=== PATIENT | male | born 1985 | race Caucasian/White ===

== ENCOUNTER 2017-10-25 10:38 | Emergency (ER) | payer SELFPAY ==
[2017-10-25] VITALS (7 sets, daily range): BP systolic 153–161; BP diastolic 67–87; PULSE 43–50; RESP 16–18; TEMP 97.6; O2SAT 97–100
[~2017-10-25] VITALS: Ht 185.4 cm; Wt 90.0 kg
[2017-10-25] MEDS ORDERED: SUCR1TAB PO (10:57)
[2017-10-25] MEDS ORDERED: NEXI20CA PO (10:57)
[2017-10-25] MEDS ORDERED: MORPHINE SULFATE 4 MG/ML INJ IV PUSH ONE (11:15)
[2017-10-25] MEDS ORDERED: PROCHLORPERAZINE INJ 10 MG/2 ML VIAL IV PUSH ONE (11:15)
[2017-10-25] MEDS ORDERED: DICYCLOMINE HCL 20 MG/2 ML VIAL IM ONE (11:15)
[2017-10-25 11:29] LABS: AUTOMATED NEUTROPHIL # 9.1 TH/MM3 (1.8-7.7); BASOPHIL # 0.2 TH/MM3 (0-0.2); BASOPHIL % 1.7 % (0.0-2.0); EOSINOPHIL # 0.1 TH/MM3 (0-0.4); EOSINOPHIL % 0.7 % (0.0-4.0); HEMATOCRIT 51.6 % (39.0-51.0); HEMOGLOBIN 17.2 GM/DL (13.0-17.0); LYMPH % 11.5 % (9.0-44.0); LYMPHOCYTE # 1.3 TH/MM3 (1.0-4.8); MEAN CELL VOLUME 91.3 FL (80.0-100.0); MEAN CORPUSCULAR HEMOGLOBIN 30.5 PG (27.0-34.0); MEAN CORPUSCULAR HGB CONC 33.4 % (32.0-36.0); MEAN PLATELET VOLUME 8.7 FL (7.0-11.0); MONO % 4.1 % (0.0-8.0); MONOCYTE # 0.5 TH/MM3 (0-0.9); PLATELET COUNT 228 TH/MM3 (150-450); RED BLOOD COUNT 5.66 MIL/MM3 (4.50-5.90); RED CELL DISTRIBUTION WIDTH 13.6 % (11.6-17.2); WHITE BLOOD COUNT 11.2 TH/MM3 (4.0-11.0)
[2017-10-25 11:36] LABS: CHLORIDE 110 MEQ/L (98-107); SODIUM (NA) 143 MEQ/L (136-145)
[2017-10-25] MEDS ORDERED: DIATRIZOATE MEGLUM/DIATRIZOATE SOD 9 ML CUP ONE (11:38)
[2017-10-25 11:39] LABS: CALCIUM 9.5 MG/DL (8.5-10.1)
[2017-10-25 11:40] LABS: ALBUMIN 4.4 GM/DL (3.4-5.0); BICARBONATE 24.5 MEQ/L (21.0-32.0); BLOOD UREA NITROGEN 16 MG/DL (7-18); GLUCOSE,RANDOM 123 MG/DL (74-106)
[2017-10-25 11:43] LABS: ALT (GPT) 29 U/L (12-78); AST (GOT) 20 U/L (15-37); GLOMERULAR FILTRATION RATE 99 ML/MIN (>89)
[2017-10-25 11:44] LABS: TOTAL BILIRUBIN ADULT 0.7 MG/DL (0.2-1.0); TOTAL PROTEIN 7.6 GM/DL (6.4-8.2)
[2017-10-25 11:46] LABS: ALKALINE PHOSPHATASE 73 U/L (45-117)
[2017-10-25] MEDS ORDERED: IOHEXOL 350 MG/ML 10 ML VIAL (for RAD DIAG) IVCONTRAST ONE (12:55)
--- NOTE | 2017-10-25 12:59 | PD ---
HPI Chief Complaint: Abdominal Pain Time Seen by Provider: 11:09 Travel History International Travel<30 days: No Contact w/Intl Traveler<30days: No Traveled to known affect area: No History of Present Illness HPI This is a 32-year-old male with a history of gastritis, presents today with complaints of severe abdominal pain with associated nausea vomiting. Patient denies any diarrhea. Patient was seen yesterday at [facility]. At that time he was diagnosed with gastritis. They did do an ultrasound of his gallbladder to rule out cholecystitis. Reportedly gallbladder showed no evidence of gallstones. The patient states the pain is generalized. Worse in the upper abdominal area. He denies any blood in his stool. He denies any fevers or chills. He does report blood-tinged emesis with the violent vomiting. PFSH Past Medical History Ulcer: Yes Tetanus Vaccination: Unknown Influenza Vaccination: No Past Surgical History Surgical History: No Previous Surgery Social History Alcohol Use: No Tobacco Use: Yes (1/2PPD) Substance Use: Yes (MJ) Allergies-Medications (Allergen,Severity, Reaction): Coded Allergies: amoxicillin (Verified Allergy, Severe, Swelling, 10/25/17) Reported Meds & Prescriptions Reported Meds & Active Scripts Active Bentyl (Dicyclomine HCl) 10 Mg Cap 10 Mg PO TID PRN Reported Nexium (Esomeprazole DR) 20 Mg Capdr 20 Mg PO DAILY Sucralfate 1 Gram Tab 1 Gm PO QID on empty stomach Review of Systems Except as stated in HPI: all other systems reviewed are Neg General / Constitutional: No: Fever, Chills HENT: No: Headaches, Lightheadedness Cardiovascular: No: Chest Pain or Discomfort, Palpitations Respiratory: No: Cough, Shortness of Breath Gastrointestinal: Positive: Nausea, Vomiting, Abdominal Pain, No: Diarrhea Genitourinary: No: Frequency, Dysuria Musculoskeletal: No: Weakness, Pain Neurologic: No: Weakness, Dizziness, Headache Physical Exam Narrative GENERAL: Well-developed and nourished male in no acute respiratory distress. Patient is actively vomiting when I SKIN: Focused skin assessment warm/dry. HEAD: Atraumatic. Normocephalic. EYES: Pupils equal and round. No scleral icterus. No injection or drainage. ENT: No nasal bleeding or discharge. Mucous membranes pink and moist. NECK: Trachea midline. No JVD. CARDIOVASCULAR: Regular rate and rhythm. No murmur appreciated. RESPIRATORY: No accessory muscle use. Clear to auscultation. Breath sounds equal bilaterally. GASTROINTESTINAL: Abdomen soft, non-tender, nondistended. Hepatic and splenic margins not palpable. MUSCULOSKELETAL: No obvious deformities. No clubbing. No cyanosis. No edema. NEUROLOGICAL: Awake and alert. No obvious cranial nerve deficits. Motor grossly within normal limits. Normal speech. PSYCHIATRIC: Appropriate mood and affect; insight and judgment normal. Data Data Last Documented VS Vital Signs Date Time Temp Pulse Resp B/P (MAP) Pulse Ox O2 Delivery O2 Flow Rate FiO2 10/25/17 15:21 50 16 155/67 (96) 97 Room Air 10/25/17 12:38 2.00 10/25/17 11:34 100 10/25/17 10:39 97.6 Orders Orders Complete Blood Count With Diff (10/25/17 11:09) Comprehensive Metabolic Panel (10/25/17 11:09) Lipase (10/25/17 11:09) Urinalysis - C+S If Indicated (10/25/17 11:09) Ct Abd/Pel W Iv Contrast(Rout) (10/25/17 11:09) Iv Access Insert/Monitor (10/25/17 11:09) Ecg Monitoring (10/25/17 11:09) Oximetry (10/25/17 11:09) Prochlorperazine Inj (Compazine Inj) (10/25/17 11:15) Dicyclomine Inj (Bentyl Inj) (10/25/17 11:15) Morphine Inj (Morphine Inj) (10/25/17 11:15) Oral Contrast - Adult (10/25/17 11:19) Diatrizoate Liq ( Gastroview Liq) (10/25/17 11:38) Iohexol 350 Inj (Omnipaque 350 Inj) (10/25/17 12:55) Sodium Chlor 0.9% 1000 Ml Inj (Ns 1000 M (10/25/17 13:45) Labs Laboratory Tests Test 10/25/17 11:00 10/25/17 14:11 White Blood Count 11.2 TH/MM3 Red Blood Count 5.66 MIL/MM3 Hemoglobin 17.2 GM/DL Hematocrit 51.6 % Mean Corpuscular Volume 91.3 FL Mean Corpuscular Hemoglobin 30.5 PG Mean Corpuscular Hemoglobin Concent 33.4 % Red Cell Distribution Width 13.6 % Platelet Count 228 TH/MM3 Mean Platelet Volume 8.7 FL Neutrophils (%) (Auto) 82.0 % Lymphocytes (%) (Auto) 11.5 % Monocytes (%) (Auto) 4.1 % Eosinophils (%) (Auto) 0.7 % Basophils (%) (Auto) 1.7 % Neutrophils # (Auto) 9.1 TH/MM3 Lymphocytes # (Auto) 1.3 TH/MM3 Monocytes # (Auto) 0.5 TH/MM3 Eosinophils # (Auto) 0.1 TH/MM3 Basophils # (Auto) 0.2 TH/MM3 CBC Comment DIFF FINAL Differential Comment Blood Urea Nitrogen 16 MG/DL Creatinine 0.90 MG/DL Random Glucose 123 MG/DL Total Protein 7.6 GM/DL Albumin 4.4 GM/DL Calcium Level 9.5 MG/DL Alkaline Phosphatase 73 U/L Aspartate Amino Transf (AST/SGOT) 20 U/L Alanine Aminotransferase (ALT/SGPT) 29 U/L Total Bilirubin 0.7 MG/DL Sodium Level 143 MEQ/L Potassium Level 3.6 MEQ/L Chloride Level 110 MEQ/L Carbon Dioxide Level 24.5 MEQ/L Anion Gap 9 MEQ/L Estimat Glomerular Filtration Rate 99 ML/MIN Lipase 77 U/L Urine Collection Type CLEAN CATCH Urine Color YELLOW Urine Turbidity CLEAR Urine pH 8.5 Urine Specific [place] 1.015 Urine Protein TRACE mg/dL Urine Glucose (UA) NEG mg/dL Urine Ketones NEG mg/dL Urine Occult Blood NEG Urine Nitrite NEG Urine Bilirubin NEG Urine Urobilinogen 0.2 MG/DL Urine Leukocyte Esterase NEG Urine RBC 0-3 /hpf Urine WBC 0-2 /hpf Urine Squamous Epithelial Cells MUCOUS /hpf Urine Amorphous Sediment FEW Urine Collection Time 1411 MDM Medical Decision Making Medical Screen Exam Complete: Yes Emergency Medical Condition: Yes Differential Diagnosis Appendicitis versus cholecystitis versus pancreatitis versus gastroenteritis Narrative Course 32-year-old male presents with nausea vomiting abdominal pain. Patient has a soft abdominal exam. White count slightly elevated at 11. He is slightly hemoconcentrated. Urinalysis shows no evidence of acute infection. LFTs and electrolyte are within normal limits. CT scan without oral contrast and IV contrast only, showed no evidence of acute intra-abdominal pathology. The patient will be discharged. Has been given a p.o. challenge which is tolerated well. He will given a prescription for Bentyl 10 mg tablets told to 3 times daily as needed. He is instructed to follow-up with a oral and maxillofacial surgery. Diagnosis Primary Impression: Nausea & vomiting Additional Impression: Abdominal pain Referrals: Kimberlyn Cordero MD Additional Instructions: [place] diet, advance as tolerated. Return if feeling worse. Follow-up with outpatient oral and maxillofacial surgery. Med/Other Pt SpecificInfo: Prescription(s) given Scripts Dicyclomine (Bentyl) 10 Mg Cap 10 MG PO TID Y for Bowel Management, #15 CAP 0 Refills Prov: Gregorio Romo MD 10/25/17 Disposition: 01 DISCHARGE HOME Condition: Stable Gregorio Romo MD October 25, 2017 12:59
--- NOTE | 2017-10-25 13:09 | RADRPT ---
EXAM DATE/TIME: 10/25/2017 12:44 [place] COMPARISON: No previous studies available for comparison. INDICATIONS : Diffuse abdomen pain with nausea and vomiting for three days. IV CONTRAST: 85 cc Omnipaque 350 (iohexol) IV ORAL CONTRAST: Partial prescribed oral contrast ingested. RADIATION DOSE: 7.84 CTDIvol (mGy) MEDICAL HISTORY : None SURGICAL HISTORY : None. ENCOUNTER: Initial ACUITY: 3 days PAIN SCALE: 8/10 LOCATION: Bilateral abdomen TECHNIQUE: Volumetric scanning of the abdomen and pelvis was performed. Using automated exposure control and ad justment of the mA and/or kV according to patient size, radiation dose was kept as low as reasonably achievable to obtain optimal diagnostic quality images. DICOM format image data is available electro nically for review and comparison. FINDINGS: LOWER LUNGS: The visualized lower lungs are clear. LIVER: Homogeneous density without lesion. There is no dilation of the biliary tree. No calcified gallston es. SPLEEN: Normal size without lesion. PANCREAS: Within normal limits. KIDNEYS: Normal in size and shape. There is no mass, stone or hydronephrosis. ADRENAL GLANDS: Within normal limits. VASCULAR: There is no aortic aneurysm. BOWEL/MESENTERY: The stomach, small bowel, and colon demonstrate no acute abnormality. There is no free intraperitone al air or fluid. ABDOMINAL WALL: Within normal limits. RETROPERITONEUM: There is no lymphadenopathy. BLADDER: No wall thickening or mass. REPRODUCTIVE: Within normal limits. INGUINAL: There is no lymphadenopathy or hernia. MUSCULOSKELETAL: Within normal limits for patient age. CONCLUSION: No acute disease. Lorene Islas MD on October 25, 2017 at 13:04 Board Certified Radiologist. This report was verified electronically.
[2017-10-25] MEDS ORDERED: SODIUM CHLOR 0.9% 1000 ML INJ 1,000 ML IV ONE (13:45)
[2017-10-25 14:40] LABS: BILIRUBIN, URINE NEG (NEG); BLOOD, URINE NEG (NEG); GLUCOSE,URINE NEG (NEG); KETONE, URINE NEG (NEG); NITRITE,URINE NEG (NEG); PH, URINE 8.5 (5.0-8.5); URINE COLOR YELLOW (YELLW/STRAW); URINE LEUKOCYTE ESTERASE NEG (NEG)
[2017-10-25 14:47] LABS: AMORPHOUS SEDIMENT, URINE FEW; RBC, URINE 0-3 /hpf (0-3); SQUAMOUS EPITHELIAL CELL URINE MUCOUS /hpf (0-5); WBC, URINE 0-2 /hpf (0-5)
[2017-10-25] MEDS ORDERED: DICY10 PO (15:47)
== END 2017-10-25 16:05 | disposition home or self-care (01) ==
LOC: PHED 10:38
DX: R11.2 Nausea with vomiting, unspecified (principal); R10.9 Unspecified abdominal pain; F17.200 Nicotine dependence, unspecified, uncomplicated; F12.90 Cannabis use, unspecified, uncomplicated
CPT/HCPCS: 74177; 80053; 81001; 83690; 85025; 96361; 96372; 96374; 96375; 99285; J0500; J0780; J2270; J7030; Q9963; Q9967